=== PATIENT | female | born 1965 ===

== ENCOUNTER 2017-01-24 10:30 | Day surgery (SDC) | payer OTHER ==
[2017-01-24] MEDS ORDERED: DiphenhydrAMINE 50 mg/ml Inj ONE ×2 (11:00→12:02)
[2017-01-24] MEDS ORDERED: Iodixanol 320 MG/ML 200 ML BOTTLE IV ONE (12:02)
[2017-01-24] MEDS ORDERED: Iodixanol 320 MG/ML 100 ML BOTTLE IV ONE (12:02)
[2017-01-24] MEDS ORDERED: Midazolam 2 MG/2 ML VIAL ONE (12:12)
--- NOTE | 2017-01-24 16:30 | US ---
Indication: Hematoma to right groin Extremity nonvascular right ultrasound Comparison: None available Findings: 6.2 x 2.0 x 4.7 cm avascular heterogeneous hypoechoic collection, consistent with hematoma. Soft tissue edema. Impression: 6.2 x 2.0 x 4.7 cm avascular heterogeneous hypoechoic collection, consistent with hematoma. Correlate clinically. Soft tissue edema.
[2017-01-24 19:06] VITALS: BP 132/97; PULSE 108; RESP 24; TEMP 99.8; O2SAT 97
--- NOTE | 2017-01-24 23:39 | CARDCATH ---
INDICATIONS: The patient is 51-year-old female who has history of hypertension, presented because of chest pain to [facility]. The patient's EKG showed dynamic ischemic anterolateral EKG changes and cardiac catheterization was recommended. The procedure and its risks were explained to the patient who understood and agreed for the procedure. PROCEDURE: After local infiltration with 1% lidocaine, a 6-Egyptian sheath was placed in the right femoral artery. Left and right coronary angiography was performed with 6-Egyptian JL4 and JR4 diagnostic catheters. Left ventriculogram was performed with a 5-Egyptian pigtail catheter. The patient tolerated the procedure well without any complications. ANGIOGRAPHIC FINDINGS: Selective injection of the left coronary artery revealed a short left main that bifurcated into medium-sized LAD and a medium-sized codominant circumflex artery. The entire left coronary circulation was angiographically unremarkable. Selective injection of the right coronary artery revealed a medium-sized dominant vessel that was angiographically unremarkable. Left ventriculogram was performed in the GOYAL projection and revealed normal wall motion. Ejection fraction estimated at 55%. CONCLUSION: Unremarkable coronary circulation and normal left ventricular systolic function. RECOMMENDATION: Searching for noncardiac causes of chest pain is recommended. Thomas Esparza MD
--- NOTE | 2017-01-24 23:54 | HP ---
HISTORY OF PRESENT ILLNESS: The patient is 51 years old female with history of hypertension, presented to [facility] with chest pain. EKG revealed dynamic ischemic anterolateral EKG changes and cardiac catheterization was recommended. The procedure and risks were fully explained to the patient, who understood and agreed for the procedure. PHYSICAL EXAMINATION: GENERAL: The patient is a middle-aged male who does not appear to be in acute distress. VITAL SIGNS: Stable. HEENT: Normocephalic. NECK: No JVD. CHEST: Clear. HEART: S1 and S2 regular. ABDOMEN: Soft. EXTREMITIES: No edema. ASSESSMENT: 1. Chest pain with dynamic ischemic anterolateral EKG changes. 2. Hypertension. PLAN: The patient undergo left heart catheterization. The procedure and risks were fully explained to the patient, who understood and agreed for the procedure. The patient also pain medicated with IV Solu-Medrol, IV Benadryl and IV Pepcid for history of shellfish allergy. Thomas Esparza MD
== END 2017-01-24 18:52 | disposition short-term general hospital (02) ==
LOC: C.CATHLAB 10:30
PROVIDERS: ATTEND Specialist
DX: R07.9 Chest pain, unspecified (principal); I10 Essential (primary) hypertension
CPT/HCPCS: 76881; 93458; C1758; C1769; C1887; J1200; J1644; J2250; J2930; Q9966; Q9967